=== PATIENT | male | born 1960 | race Caucasian/White ===

== ENCOUNTER 2018-10-13 09:06 | Emergency (ER) | payer BC ==
[2018-10-13 10:13] LABS: Absolute Monocytes 0.5 K/uL (0.1-1.3); Absolute Neutrophil 5.4 K/uL (1.8-8.0); Basophils % 1.2 % (0-1.3); Eosinophils % 2.2 % (0-4.4); Hematocrit 42.2 % (39.6-49.0); Monocytes % 6.5 % (3.3-12.3); RBC Red Blood Cell Count 4.58 M/uL (4.33-5.43)
[2018-10-13 10:14] LABS: Protime INR 1.04
[2018-10-13 10:32] LABS: ALT/SGPT 26 U/L (12-78); AST/SGOT 16 U/L (15-37); Albumin 3.3 g/dL (3.4-5.0); Alkaline Phosphatase 88 U/L (45-117); BUN Blood Urea Nitrogen 16 mg/dL (7-18); Bicarbonate 28 mmol/L (21-32); Bilirubin Direct 0.1 mg/dL (0-0.2); Bilirubin Total 0.4 mg/dL (0.2-1.0); Glucose Level 105 mg/dL (74-106); Potassium 4.2 mmol/L (3.5-5.1); Protein, Total 6.9 g/dL (6.4-8.2); Sodium Level 141 mmol/L (136-145); Troponin (Emerg Dept Use Only) < 0.02 ng/mL (0.0-0.045)
--- NOTE | 2018-10-13 11:16 | RAD REPORT ---
EXAM DESCRIPTION: RAD - Chest Single View - 10/13/2018 10:47 am CLINICAL HISTORY: Hypertension, dizziness COMPARISON: July 2011 TECHNIQUE: AP portable chest image was obtained 1045 hours . FINDINGS: Lungs are clear. Heart and vasculature are normal and similar to comparison. No measurable pleural effusion and no pneumothorax. No acute bony abnormality seen. No acute aortic findings suspe cted. IMPRESSION: No acute cardiopulmonary process. No significant interval change.
--- NOTE | 2018-10-13 11:22 | RAD REPORT ---
EXAM DESCRIPTION: CT - Head Brain Wo Cont - 10/13/2018 10:50 am CLINICAL HISTORY: Dizziness, weakness, hypertension COMPARISON: None. TECHNIQUE: Axial 5 mm thick images of the head were obtained without IV contrast. All CT scans are performed using dose optimization technique as appropriate and may include automated exposure control or mA/KV adjustment according to patient size. FINDINGS: No intracranial hemorrhage, mass, edema or shift of mid-line structures. No cortical based infarction identified. No cortical edema or sulcal effacement. Volume loss is minimal. Patient has a minimal chronic ischemic pattern evident. No abnormal extra-axial fluid collections. Ventricles are normal. There is subtle increased density along the tentorium. CT imaging is inherently limited in evaluation of the posterior fossa. No trauma history indicated. Mastoid air cells and visualized portions of the paranasal sinuses are clear. No acute bony findings. IMPRESSION: No hemorrhage, mass or edema. No cortical infarctions seen. Patient has minimal atrophy and chronic ischemic change potentially masking a small nonhemorrhagic CV A. If there are clinical concerns for CVA, MR imaging could be performed to exclude nonhemorrhagic CVA a nd to allow better posterior fossa assessment.
--- NOTE | 2018-10-13 13:17 | EKG ---
Test Date: 2018-10-13 Test Time: 09:42:15 Software Client Architect: NAVA MEASUREMENT RESULTS: Intervals: Rate: 82 SC: 194 QRSD: 100 QT: 386 QTc: 450 Bath: P: 42 SC: 194 QRS: 22 T: 36 INTERPRETIVE STATEMENTS: Normal sinus rhythm Normal ECG Compared to ECG 07/24/2011 10:48:59 No significant changes Electronically Signed On 10-13-18 13:16:25 ELECTRICAL TECH/PROJECT MANAGER by Alfred Mendez
--- NOTE | 2018-10-13 15:21 | EDPHYS ---
Physician Documentation [facility] Name: Colin Kaur Age: 58 yrs Sex: Male : 1960 Arrival Date: 10/13/2018 Time: 09:08 Bed 19 Private MD: Lucio Bond ED Physician Dave Barrera HPI: 10/13 10:32 This 58 yrs old Male presents to ER via Ambulatory with complaints of High kdr Blood Pressure, Dizziness. 10:32 The patient became lightheaded at work. He has been under a lot of stress and when kdr evaluated at work it was noted that his BP was elevated (180/110). When checked again, the SBP had decreased but the DBP had elevated so he was told to [facility] for evaluation. Onset: The symptoms/episode began/occurred suddenly, just prior to arrival. Severity of symptoms: At their worst the symptoms were very mild in the emergency department the symptoms have resolved. The patient has not experienced similar symptoms in the past. The patient has not recently seen a physician. Historical: - Allergies: 09:19 No Known Allergies; sg - Home Meds: 09:19 losartan oral oral [Active]; Lasix Oral [Active]; Potassium Chloride Oral [Active]; sg unable BP medication [Active]; - PMHx: 09:19 Hypertension; High Cholesterol; sg - PSHx: 09:19 Cholecystectomy; Hernia repair; sg - Immunization history:: Adult Immunizations up to date. - Social history:: Smoking status: Patient/guardian denies using tobacco. - Ebola Screening: : Patient negative for fever greater than or equal to 101.5 degrees Fahrenheit, and additional compatible Ebola Virus Disease symptoms Patient denies exposure to infectious person Patient denies travel to an Ebola-affected area in the 21 days before illness onset No symptoms or risks identified at this time. ROS: 10:32 Constitutional: Negative for fever, chills, and weight loss, Eyes: Negative for injury, kdr pain, redness, and discharge, ENT: Negative for injury, pain, and discharge, Neck: Negative for injury, pain, and swelling, Cardiovascular: Negative for chest pain, palpitations, and edema, Respiratory: Negative for shortness of breath, cough, wheezing, and pleuritic chest pain, Abdomen/GI: Negative for abdominal pain, nausea, vomiting, diarrhea, and constipation, Back: Negative for injury and pain, : Negative for injury, bleeding, discharge, and swelling, MS/Extremity: Negative for injury and deformity, Skin: Negative for injury, rash, and discoloration, Neuro: Negative for headache, weakness, numbness, tingling, and seizure activity. Psych: Negative for depression, anxiety, suicide ideation, homicidal ideation, and hallucinations, Allergy/Immunology: Negative for hives, rash, and allergies, Endocrine: Negative for neck swelling, polydipsia, polyuria, polyphagia, and marked weight changes, Hematologic/Lymphatic: Negative for swollen nodes, abnormal bleeding, and unusual bruising. Exam: 10:32 Constitutional: This is a well developed, well nourished obese patient who is awake, kdr alert, and in no acute distress. Head/Face: Normocephalic, atraumatic. Eyes: Pupils equal round and reactive to light, extra-ocular motions intact. Lids and lashes normal. Conjunctiva and sclera are non-icteric and not injected. Cornea within normal limits. Periorbital areas with no swelling, redness, or edema. Neck: Trachea midline, no thyromegaly or masses palpated, and no cervical lymphadenopathy. Supple, full range of motion without nuchal rigidity, or vertebral point tenderness. No Meningismus. Chest/axilla: Normal chest wall appearance and motion. Nontender with no deformity. No lesions are appreciated. Cardiovascular: Regular rate and rhythm with a normal S1 and S2. No gallops, murmurs, or rubs. Normal PMI, no JVD. No pulse deficits. Respiratory: Lungs have equal breath sounds bilaterally, clear to auscultation and percussion. No rales, rhonchi or wheezes noted. No increased work of breathing, no retractions or nasal flaring. Abdomen/GI: Soft, non-tender, with normal bowel sounds. No distension or tympany. No guarding or rebound. No evidence of tenderness throughout. Back: No spinal tenderness. No costovertebral tenderness. Full range of motion. Skin: Warm, dry with normal turgor. Normal color with no rashes, no lesions, and no evidence of cellulitis. MS/ Extremity: Pulses equal, no cyanosis. Neurovascular intact. Full, normal range of motion. Neuro: Awake and alert, GCS 15, oriented to person, place, time, and situation. Cranial nerves II-XII grossly intact. Motor strength 5/5 in all extremities. Sensory grossly intact. Cerebellar exam normal. Normal gait. Psych: Awake, alert, with orientation to person, place and time. Behavior, mood, and affect are within normal limits. Vital Signs: 09:17 Temp 98.6; Weight 167.83 kg (R); Height 5 ft. 8 in. (172.72 cm); sg 09:20 BP 160 / 88; Pulse 91; Resp 17; Temp 98.6(O); Pulse Ox 98% ; mh5 10:30 BP 127 / 80; Pulse 75; Resp 18; Pulse Ox 98% on R/A; aj1 11:20 BP 132 / 94; Pulse 79; Resp 22; Temp 97.8(TE); Pulse Ox 99% on R/A; mh5 12:24 BP 131 / 87; Pulse 76; Resp 18; Pulse Ox 100% on R/A; aj1 13:10 BP 136 / 90; Pulse 81; Resp 18; Temp 98.0(O); Pulse Ox 98% on R/A; mh5 14:15 BP 130 / 87; Pulse 72; Resp 18; Pulse Ox 99% ; aj1 16:26 BP 132 / 88; Pulse 75; Resp 18; Pulse Ox 99% on R/A; aj1 09:17 Body Mass Index 56.26 (167.83 kg, 172.72 cm) MDM: 10:00 ED course: CT head negative/Dr. Otoole. kdr 10:32 Data reviewed: vital signs, nurses notes, lab test result(s), radiologic studies. kdr Counseling: I had a detailed discussion with the patient and/or guardian regarding: the historical points, exam findings, and any diagnostic results supporting the discharge/admit diagnosis, lab results, radiology results. 15:20 Patient medically screened. kdr 10/13 09:40 Order name: Basic Metabolic Panel; Complete Time: 11:00 kdr 10/13 09:40 Order name: CBC with Diff; Complete Time: 11:00 kdr 10/13 09:40 Order name: LFT's; Complete Time: 11:00 kdr 10/13 09:40 Order name: Magnesium; Complete Time: 11:00 kdr 10/13 09:40 Order name: PT-INR; Complete Time: 11:00 kdr 10/13 09:40 Order name: Troponin (emerg Dept Use Only); Complete Time: 11:00 kdr 10/13 09:40 Order name: XRAY Chest (1 view); Complete Time: 11:50 kdr 10/13 09:40 Order name: EKG; Complete Time: 09:41 kdr 10/13 09:40 Order name: Cardiac monitoring; Complete Time: 10:08 [facility] 10/13 10:27 Order name: Head Brain Wo Cont; Complete Time: 11:50 EDMS 10/13 09:40 Order name: EKG - Nurse/Tech; Complete Time: 10:10 kdr 10/13 09:40 Order name: IV Saline Lock; Complete Time: 10: kdr 10/13 09:40 Order name: Labs collected and sent; Complete Time: 10: [facility] 10/13 09:40 Order name: O2 Per Protocol; Complete Time: 10: kdr 10/13 09:40 Order name: O2 Sat Monitoring; Complete Time: 10:08 kdr Administered Medications: No medications were administered Disposition: 10/13/18 15:20 Discharged to Home. Impression: Hypertensive heart disease, Altered mental status, unspecified. - Condition is Stable. - Discharge Instructions: Confusion, Hypertension, [id number]. - Work release form, Medication Reconciliation Form, Thank You Letter form. - Follow up: Lucio Bond MD; When: 2 - 3 days; Reason: If symptoms return, Further diagnostic work-up, Recheck today's complaints, Continuance of care, Re-evaluation by your physician. - Problem is new. - Symptoms are resolved. Signatures: [facility] Antonia Wray RN RN aj1 Michael Jo RN RN Dave Barrera MD MD [facility] Corrections: (The following items were deleted from the chart) 10:34 10:26 Head Brain Wo Cont+CT.RAD.BRZ ordered. [facility] EDMI 16:27 09:41 PROBNP+C.LAB.BRZ ordered. [facility] EDMI 16:28 15:20 10/13/2018 15:20 Discharged to Home. Impression: Hypertensive heart disease; aj1 Altered mental status, unspecified. Condition is Stable. Forms are Medication Reconciliation Form, Thank You Letter, Antibiotic Education, Prescription Opioid Use. Follow up: Lucio Bond; When: 2 - 3 days; Reason: If symptoms return, Further diagnostic work-up, Recheck today's complaints, Continuance of care, Re-evaluation by your physician. Problem is new. Symptoms are resolved. kdr
--- NOTE | 2018-10-13 15:21 | ER ---
Nurse's Notes [facility] Name: Colin Kaur Age: 58 yrs Sex: Male : 1960 Arrival Date: 10/13/2018 Time: 09:08 Bed 19 Private MD: Lucio Bond Diagnosis: Hypertensive heart disease;Altered mental status, unspecified Presentation: 10/13 09:15 Presenting complaint: Patient states: Last night had intermittent episodes of light sg handedness, reports his BP to be 180/110 this morning, took his regular BP medications and is now feeling better, denies pain/N/V/D/Fever at this time. Transition of care: patient was not received from another setting of care. Onset of symptoms was October 13, 2018. Risk Assessment: Do you want to hurt yourself or someone else? Patient reports no desire to harm self or others. Initial Sepsis Screen: Does the patient meet any 2 criteria? No. Patient's initial sepsis screen is negative. Does the patient have a suspected source of infection? No. Patient's initial sepsis screen is negative. Care prior to arrival: None. 09:15 Method Of Arrival: Ambulatory sg 09:15 Acuity: LEAH 3 sg Historical: - Allergies: 09:19 No Known Allergies; sg - Home Meds: 09:19 losartan oral oral [Active]; Lasix Oral [Active]; Potassium Chloride Oral [Active]; sg unable BP medication [Active]; - PMHx: 09:19 Hypertension; High Cholesterol; sg - PSHx: 09:19 Cholecystectomy; Hernia repair; sg - Immunization history:: Adult Immunizations up to date. - Social history:: Smoking status: Patient/guardian denies using tobacco. - Ebola Screening: : Patient negative for fever greater than or equal to 101.5 degrees Fahrenheit, and additional compatible Ebola Virus Disease symptoms Patient denies exposure to infectious person Patient denies travel to an Ebola-affected area in the 21 days before illness onset No symptoms or risks identified at this time. Screenin:30 Abuse screen: Denies threats or abuse. Denies injuries from another. Nutritional sg screening: No deficits noted. Tuberculosis screening: No symptoms or risk factors identified. Never had TB. Fall Risk None identified. Assessment: 09:30 General: Appears in no apparent distress. comfortable, obese, well groomed, well sg developed, well nourished, Behavior is calm, cooperative, appropriate for age. Pain: Denies pain. Neuro: Level of Consciousness is awake, alert, obeys commands, Oriented to person, place, time, situation, Still Operator Whiskey are equal bilaterally Moves all extremities. Gait is steady, Speech is normal, Facial symmetry appears normal, Pupils are PERRLA, Reports dizziness. Cardiovascular: Capillary refill is brisk in bilateral fingers Patient's skin is warm and dry. Chest pain is denied. Respiratory: Airway is patent Respiratory effort is even, unlabored, Respiratory pattern is regular, symmetrical. GI: Abdomen is round non-distended, Bowel sounds present X 4 quads. Reports normal bowel habits, tolerance of fluids, tolerance of food. : No signs and/or symptoms were reported regarding the genitourinary system. EENT: No signs and/or symptoms were reported regarding the EENT system. Derm: Skin is pink, warm \\T\\ dry. Musculoskeletal: No signs and/or symptoms reported regarding the musculoskeletal system. 10:30 General: Appears in no apparent distress. comfortable, Behavior is calm, cooperative, aj1 appropriate for age. Pain: Denies pain. Neuro: Level of Consciousness is awake, alert, obeys commands, Oriented to person, place, time, situation, Speech is normal, Facial symmetry appears normal, Reports dizziness. Cardiovascular: Patient's skin is warm and dry. Rhythm is sinus rhythm Chest pain is denied. Respiratory: Airway is patent Respiratory effort is even, unlabored, Respiratory pattern is regular, symmetrical. GI: No signs and/or symptoms were reported involving the gastrointestinal system. Abdomen is non-distended. : No signs and/or symptoms were reported regarding the genitourinary system. EENT: No signs and/or symptoms were reported regarding the EENT system. Derm: No signs and/or symptoms reported regarding the dermatologic system. Skin is pink, warm \\T\\ dry. normal. Musculoskeletal: No signs and/or symptoms reported regarding the musculoskeletal system. Circulation, motion, and sensation intact. 11:30 Reassessment: Patient appears in no apparent distress at this time. No changes from aj1 previously documented assessment. Patient and/or family updated on plan of care and expected duration. Pain level reassessed. Patient is alert, oriented x 3, equal unlabored respirations, skin warm/dry/pink. 12:23 Reassessment: Patient appears in no apparent distress at this time. No changes from aj1 previously documented assessment. Patient and/or family updated on plan of care and expected duration. Pain level reassessed. Patient is alert, oriented x 3, equal unlabored respirations, skin warm/dry/pink. 13:47 Reassessment: Patient appears in no apparent distress at this time. No changes from aj1 previously documented assessment. Patient and/or family updated on plan of care and expected duration. Pain level reassessed. Patient is alert, oriented x 3, equal unlabored respirations, skin warm/dry/pink. 14:26 Reassessment: Patient taken to MRI via stretcher. aj1 14:56 Reassessment: Patient returned to room from MRI, patient was unable to have MRI done aj1 because he felt too claustrophobic to complete the exam. Patient was asked if he would be filling to try again if we gave him medication for anxiety. Patient states "There's no way I'm going to do that test. You would have to give me anesthesia" Notified Dr. Barrera. 15:45 Reassessment: Patient appears in no apparent distress at this time. No changes from aj1 previously documented assessment. Patient and/or family updated on plan of care and expected duration. Pain level reassessed. Patient is alert, oriented x 3, equal unlabored respirations, skin warm/dry/pink. 16:26 Reassessment: Patient appears in no apparent distress at this time. No changes from aj1 previously documented assessment. Patient and/or family updated on plan of care and expected duration. Pain level reassessed. Patient is alert, oriented x 3, equal unlabored respirations, skin warm/dry/pink. Vital Signs: 09:17 Temp 98.6; Weight 167.83 kg (R); Height 5 ft. 8 in. (172.72 cm); sg 09:20 BP 160 / 88; Pulse 91; Resp 17; Temp 98.6(O); Pulse Ox 98% ; mh5 10:30 BP 127 / 80; Pulse 75; Resp 18; Pulse Ox 98% on R/A; aj1 11:20 BP 132 / 94; Pulse 79; Resp 22; Temp 97.8(TE); Pulse Ox 99% on R/A; mh5 12:24 BP 131 / 87; Pulse 76; Resp 18; Pulse Ox 100% on R/A; aj1 13:10 BP 136 / 90; Pulse 81; Resp 18; Temp 98.0(O); Pulse Ox 98% on R/A; mh5 14:15 BP 130 / 87; Pulse 72; Resp 18; Pulse Ox 99% ; aj1 16:26 BP 132 / 88; Pulse 75; Resp 18; Pulse Ox 99% on R/A; aj1 09:17 Body Mass Index 56.26 (167.83 kg, 172.72 cm) ED Course: 09:08 Patient arrived in ED. as 09:09 Lucio Bond MD is Private Physician. as 09:12 Dave Barrera MD is Attending Physician. kdr 09:14 Juana Malhotra, RN is Primary Nurse. 5 09:17 Triage completed. 09:19 Arm band placed on. sg 10:00 Initial lab(s) drawn, by wi, sent to lab. Inserted saline lock: 20 gauge in right sg antecubital area, using aseptic technique. Blood collected. 10:06 EKG done, by ED staff. at1 10:48 XRAY Chest (1 view) In Process Unspecified. EDMS 10:50 Head Brain Wo Cont In Process Unspecified. EDMS 11:19 Patient has correct armband on for positive identification. Placed in gown. Bed in low mh5 position. Call light in reach. Side rails up X 1. Adult w/ patient. Warm blanket given. monitoring and evaluation advisor on. Pulse ox on. NIBP on. 11:19 EKG done, by ED staff, reviewed by Dave Barrera MD. 5 12:23 No provider procedures requiring assistance completed. aj1 15:19 Lucio Bond MD is Referral Physician. kdr 16:27 IV discontinued, intact, bleeding controlled, No redness/swelling at site. Pressure aj1 dressing applied. Administered Medications: No medications were administered Outcome: 15:20 Discharge ordered by . kdr 16:27 Discharged to home ambulatory. aj1 16:27 Condition: good 16:27 Discharge instructions given to patient, Instructed on discharge instructions, follow up and referral plans. Demonstrated understanding of instructions, follow-up care. 16:28 Patient left the ED. aj1 Signatures: Dispatcher [employer] EDAntonia Mosley RN RN Eloisa Moreauna, RN RN dm5 Michael Jo, RN RN sg Dave Barrera MD MD kdr Martinez, Amelia as Gonzales, Amanda, weapons and tactics instructor EKG [facility] Deborah Dunn [facility] Corrections: (The following items were deleted from the chart) : 09:20 BP 160 / 88; Pulse 91bpm; Resp 17bpm; sg mh5
== END 2018-10-13 16:28 | disposition home or self-care (01) ==
LOC: ER 09:06
DX: I11.9 Hypertensive heart disease without heart failure (principal); I10 Essential (primary) hypertension; E78.00 Pure hypercholesterolemia, unspecified
CPT/HCPCS: 36415; 70450; 71045; 80048; 80076; 83735; 84484; 85025; 85610; 93005; 99285

== ENCOUNTER 2024-12-07 14:49 | Emergency (ER) | payer OTHER ==
[2024-12-07] MEDS ORDERED: MAGNESIUM SULFATE 1 gm IVPB 1 GM/100 ML BAG IV ONE (15:21)
[2024-12-07] MEDS ORDERED: NA CHLORIDE 0.9% 500 ML ONE (15:21)
--- NOTE | 2024-12-07 15:26 | RAD REPORT ---
EXAM: Chest Single View HISTORY: 64 years Male PALPITATIONS COMPARISON: 10/13/2018 FINDINGS: LUNGS/PLEURA: The lungs are clear. No pleural effusions or pneumothorax. No pulmonary edema. CARDIAC/MEDIASTINUM: The cardiac silhouette is within normal limits. UPPER ABDOMEN: No significant abnormality. BONES: No acute abnormality. LINES/TUBES/OTHER: N/A IMPRESSION: No evidence of acute cardiopulmonary disease. No significant change from prior.
[2024-12-07 15:41] LABS: Absolute Basophils 0.1 K/uL (0-0.5); Absolute Eosinophils 0.3 K/uL (0-0.5); Absolute Lymphocytes (CBC) 2.3 K/uL (0.7-4.9); Absolute Monocytes 0.7 K/uL (0.1-1.3); Absolute Neutrophil 6.8 K/uL (1.8-8.0); Basophils % 0.7 % (0-1.3); Hematocrit 48.1 % (39.6-49.0); Hemoglobin 16.7 g/dL (13.6-17.9); Lymphocytes % 22.2 % (15.3-44.8); MCH 31.9 pg (27.0-35.0); MCHC 34.7 g/dL (32.0-36.0); MPV 7.5 fL (7.6-11.3); Monocytes % 7.3 % (3.3-12.3); Neutrophils % 66.8 % (41.7-73.7); Nucleated Red Blood Cells % 0.1 % (0-0); Platelets 330 thou/uL (152-406); RBC Red Blood Cell Count 5.23 M/uL (4.33-5.43); Red Cell Distribution Width 13.6 % (12.1-15.2)
[2024-12-07 15:50] LABS: PT Prothrombin Time 11.8 SECONDS (10-13.0); Protime INR 1.04
[2024-12-07 16:00] LABS: Specific Gravity 1.009 (1.005-1.030); Sqamous Epithelial <5 /HPF (None Seen); Urine Bacteria <20 /HPF (<20); Urine Bilirubin NEGATIVE (Negative); Urine Blood Negative (Negative); Urine Clarity Turbid (Clear); Urine Color Light-Yellow (Yellow); Urine Culture Reflex Order NOT NEEDED; Urine Glucose NEGATIVE (Negative); Urine Ketones 1+ (Negative); Urine Microscopic Reflex YN ORDER UMIC; Urine Mucus Slight /HPF (None Seen); Urine Nitrite NEGATIVE (Negative); Urine Protein TRACE (Negative); Urine RBC <5 /HPF (None Seen); Urine Urobilinogen Normal (Normal); Urine WBC <5 /HPF (<5); Urine Yeast (Budding) Trace /HPF (None Seen); Urine pH 5.5 (5.0-7.0)
[2024-12-07 16:10] LABS: ALT/SGPT 28 U/L (16-61); AST/SGOT 14 U/L (15-37); Albumin 3.3 g/dL (3.4-5.0); Albumin/Globulin Ratio 0.9 (1.1-1.8); Alkaline Phosphatase 76 U/L (45-117); Anion Gap 6.8 mEq/L (5.0-15.0); BUN Blood Urea Nitrogen 14 mg/dL (7-18); Bicarbonate 29 mEq/L (21-32); Bilirubin Total 0.5 mg/dL (0.2-1.0); Globulin 3.8 g/dL (2.3-3.5); Glomerular Filtration Rate 77 ml/min (=/>90); Glucose Level 101 mg/dL (74-106); Lipase 25 U/L (13-75); Magnesium 1.8 mg/dL (1.6-2.4); NT PRO-BNP 44 pg/mL (<125); Potassium 3.8 mEq/L (3.5-5.1); Protein, Total 7.1 g/dL (6.4-8.2); Sodium Level 135 mEq/L (136-145); Troponin High Sensitivity 6.3 pg/mL (<58.9)
[2024-12-07] MEDS ORDERED: METOPROLOL TAR 50 MG TAB ONE (16:12)
[2024-12-07] MEDS ORDERED: ASPIRIN 81 MG CHEWABLE TABLET ONE (16:13)
[2024-12-07 16:15] LABS: Bilirubin Direct < 0.2 mg/dL (0-0.2); Bilirubin Indirect, Calculated 0.3 mg/dL (0.2-0.8)
[2024-12-07] MEDS ORDERED: lisinopriL 10 MG TAB ONE (17:00)
--- NOTE | 2024-12-07 17:11 | RAD REPORT ---
EXAMINATION: US LOWER EXTREMITY VENOUS DOPPLER BILATERAL CLINICAL INDICATION: Male, 64 years old.SWELLING TECHNIQUE: Complete bilateral duplex sonography of the lower extremity veins was performed. The exami nation included compression for vein patency, color Doppler imaging and flow augmentation in response to distal compression of the distal external iliac, common femoral, femoral, popliteal, dylan jagjit, tibial and great saphenous veins. [id number]. COMPARISON: No prior exams FINDINGS: Duplex sonography imaging demonstrates all deep examined to be fully compressible with spontaneous, p hasic and augmented flow bilaterally. IMPRESSION: No evidence of deep venous thrombosis seen in either lower extremity.
--- NOTE | 2024-12-07 17:31 | EDPHYS ---
Physician Documentation [facility] Name: Colin Kaur Age: 64 yrs Sex: Male : 1960 Arrival Date: 12/07/2024 Time: 14:49 Bed 8 Private MD: ED Physician Lacho Yancey HPI: 12/07 15:31 This 64 yrs old Male presents to ER via EMS with complaints of Palpitations. matthew 15:31 The patient presents with a history of irregular heart beat, heart racing. Context: The matthew symptoms occur at rest. Onset: The symptoms/episode began/occurred today. Modifying factors: The symptoms are aggravated by nothing. The symptoms are alleviated by nothing. Severity of symptoms: At their worst the symptoms were moderate in the emergency department the symptoms have improved mildly. The patient has experienced similar episodes in the past, several times. Historical: - Allergies: 14:47 No Known Allergies; db - PMHx: 14:47 High Cholesterol; Hypertension; db - Immunization history:: Adult Immunizations unknown. - Infectious Disease History:: Denies. - Social history:: Smoking status: Patient/guardian denies using tobacco, the patient reports quitting approximately 5 years ago. - Family history:: not pertinent. ROS: 15:32 Constitutional: Negative for fever, chills, and weight loss, Eyes: Negative for injury, matthew pain, redness, and discharge, ENT: Negative for injury, pain, and discharge, Neck: Negative for injury, pain, and swelling, Respiratory: Negative for shortness of breath, cough, wheezing, and pleuritic chest pain, Abdomen/GI: Negative for abdominal pain, nausea, vomiting, diarrhea, and constipation, Back: Negative for injury and pain, : Negative for injury, bleeding, discharge, and swelling, MS/Extremity: Negative for injury and deformity, Skin: Negative for injury, rash, and discoloration, Neuro: Negative for headache, weakness, numbness, tingling, and seizure, Psych: Negative for depression, anxiety, suicide ideation, homicidal ideation, and hallucinations, Allergy/Immunology: Negative for hives, rash, and allergies, Endocrine: Negative for neck swelling, polydipsia, polyuria, polyphagia, and marked weight changes, Hematologic/Lymphatic: Negative for swollen nodes, abnormal bleeding, and unusual bruising, 15:32 Cardiovascular: Positive for palpitations, Exam: 15:33 Constitutional: This is a well developed, well nourished patient who is awake, alert, matthew and in no acute distress. Head/Face: Normocephalic, atraumatic. Eyes: Pupils equal round and reactive to light, extra-ocular motions intact. Lids and lashes normal. Conjunctiva and sclera are non-icteric and not injected. Cornea within normal limits. Periorbital areas with no swelling, redness, or edema. ENT: Nares patent. No nasal discharge, no septal abnormalities noted. Tympanic membranes are normal and external auditory canals are clear. Oropharynx with no redness, swelling, or masses, exudates, or evidence of obstruction, uvula midline. Mucous membranes moist. Neck: Trachea midline, no thyromegaly or masses palpated, and no cervical lymphadenopathy. Supple, full range of motion without nuchal rigidity, or vertebral point tenderness. No Meningismus. Chest/axilla: Normal chest wall appearance and motion. Nontender with no deformity. No lesions are appreciated. Respiratory: Lungs have equal breath sounds bilaterally, clear to auscultation and percussion. No rales, rhonchi or wheezes noted. No increased work of breathing, no retractions or nasal flaring. Abdomen/GI: Soft, non-tender, with normal bowel sounds. No distension or tympany. No guarding or rebound. No evidence of tenderness throughout. Back: No spinal tenderness. No costovertebral tenderness. Full range of motion. Male : Normal genitalia with no discharge or lesions. Skin: Warm, dry with normal turgor. Normal color with no rashes, no lesions, and no evidence of cellulitis. MS/ Extremity: Pulses equal, no cyanosis. Neurovascular intact. Full, normal range of motion., bilateral aka Neuro: Awake and alert, GCS 15, oriented to person, place, time, and situation. Cranial nerves II-XII grossly intact. Motor strength 5/5 in all extremities. Sensory grossly intact. Cerebellar exam normal. Normal gait. Psych: Awake, alert, with orientation to person, place and time. Behavior, mood, and affect are within normal limits. 15:33 Cardiovascular: Rate: tachycardic, actual rate is 102 bpm, Rhythm: regular, Pulses: Pulses are 4+ in bilateral radial, brachial, femoral, popliteal, posterior tibial and and dorsalis pedis arteries.. Heart sounds: normal, JVD: is not appreciated, 15:33 ECG was reviewed by the Attending Physician. 15:33 Musculoskeletal/extremity: ROM: Circulation is intact in all extremities. Sensation intact. Compartment Syndrome exam of affected extremity: is normal. Weight bearing: able to fully bear weight, DVT Exam: pain, swelling, tenderness, 15:51 ECG was reviewed by the Attending Physician. matthew Vital Signs: 14:47 BP 168 / 123; Pulse 102; Resp 18; Temp 98.5; Pulse Ox 97% on R/A; Weight 153.31 kg; db Height 5 ft. 8 in. ; Pain 0/10; 15:00 BP 165 / 109; Pulse 100; Resp 18; Pulse Ox 97% ; db 15:30 BP 153 / 99; Pulse 101; Resp 18; Pulse Ox 97% on R/A; db 16:00 BP 144 / 83; Pulse 100; Resp 22; Pulse Ox 100% on R/A; db 16:30 BP 136 / 83; Pulse 98; Resp 26; Pulse Ox 98% ; db 17:30 BP 152 / 98 Supine; Pulse 97; Pulse Ox 97% ; db 17:32 BP 156 / 110 Sitting; Pulse 113; Pulse Ox 95% ; db 17:36 BP 164 / 108 Standing; Pulse 116; Pulse Ox 98% ; db 18:50 BP 152 / 85; Pulse 92; Resp 18; Pulse Ox 98% on R/A; db 14:47 Body Mass Index 51.39 (153.31 kg, 172.72 cm) db 14:47 Pain Scale: Adult db Cherri Coma Score: 15:33 Eye Response: spontaneous(4). Motor Response: obeys commands(6). Verbal Response: matthew oriented(5). Total: 15. MDM: 15:01 Medical Screening Exam initiated matthew 15:35 AUBREE Risk Score: 1 - Patient's age is greater or equal to 65, 1 - 3 or more CAD risk matthew factors. Differential diagnosis: arrythmia, dehydration. Data reviewed: vital signs, nurses notes, lab test result(s), EKG, radiologic studies, plain films. Consideration of Admission/Observation Patient was admitted/placed on observation. Escalation of care including admission/observation considered. I considered the following discharge prescriptions or medication management in the emergency department Medications were administered in the Emergency Department. See MAR. Independent interpretation of the following test(s) in the Emergency Department EKG: See my EKG interpretation above. Historians other than the Patient: PT WELL INFIORMED. Care significantly affected by the following chronic conditions: Hypertension, Obesity, HIGH CHLESTEROL. 12/07 15:02 Order name: Basic Metabolic Panel; Complete Time: 16:19 12/07 15:02 Order name: CBC with Diff; Complete Time: 16:19 12/07 15:02 Order name: LFT's; Complete Time: 16:19 12/07 15:02 Order name: Magnesium; Complete Time: 16:19 12/07 15:02 Order name: NT PRO-BNP; Complete Time: 16:19 12/07 15:02 Order name: PT-INR; Complete Time: 16:19 12/07 15:02 Order name: Troponin HS; Complete Time: 16:19 12/07 15:02 Order name: Lipase; Complete Time: 16:19 12/07 15:02 Order name: Urinalysis w/ reflexes; Complete Time: 16:19 12/07 15:02 Order name: TSH; Complete Time: 16:19 12/07 15:02 Order name: XRAY Chest (1 view); Complete Time: 16:19 12/07 15:30 Order name: US Extremity Venous W Compression Jan; Complete Time: 17:30 12/07 17:51 Order name: CT Chest For PE Angio 12/07 15:02 Order name: EKG; Complete Time: 15:03 12/07 15:02 Order name: Cardiac monitoring; Complete Time: 15:09 12/07 15:02 Order name: IV Saline Lock; Complete Time: 15:09 12/07 15:02 Order name: Labs collected and sent; Complete Time: 15:37 12/07 15:02 Order name: O2 Per Protocol; Complete Time: 15:09 12/07 17:01 Order name: Orthostatics; Complete Time: 17:40 12/07 17:04 Order name: PO challenge; Complete Time: 18:27 [facility] EC:51 Rate is 98 beats/min. Rhythm is regular. QRS [place] is Normal. [place] interval is normal. QRS matthew interval is normal. QT interval is normal. No Q waves. T waves are Normal. No ST changes noted. Clinical impression: NSR w/ Non-specific ST/T Changes, 1st degree heart block, and No evidence of ischemia. Interpreted by me. Reviewed by me. Administered Medications: 15:30 Drug: NS 0.9% IV 500 ml 500 ml IV at 1 bolus once; to be given as a bolus over 30 db minutes Volume: 500 ml; Route: IV; Rate: 1 bolus; Site: right antecubital; 15:30 Drug: Magnesium Sulfate IVPB 1 grams IVPB once over 1 hrs Route: IVPB; Infused Over: 1 db hrs; Site: right antecubital; 16:23 Drug: Metoprolol PO 50 mg PO once Route: PO; db 16:23 Drug: Aspirin PO Chewable Tablet 162 mg PO once Route: PO; db 17:01 Not Given (Duplicate Order): mg PO once matthew 17:05 Drug: Lisinopril PO 10 mg PO once Route: PO; db 19:15 Follow up: Response: No adverse reaction; Marked relief of symptoms; Blood pressure is vc1 lowered 18:48 Drug: Enoxaparin Sub-Q 100 mg Sub-Q once Route: Sub-Q; Site: left lower abdomen; db Disposition Summary: 12/07/24 19:08 Discharge Ordered Notes: Location: Home(12/07/24 19:08) sb4 Problem: new(12/07/24 19:08) sb4 Symptoms: have improved(12/07/24 19:08) sb4 Condition: Fair(12/07/24 19:08) sb4 Diagnosis - Tachycardia, unspecified(12/07/24 19:08) sb4 - Essential (primary) hypertension(12/07/24 19:08) sb4 - Palpitations(12/07/24 19:08) sb4 - Obesity, unspecified(12/07/24 19:08) sb4 Followup: matthew - With: Private Physician - When: 2 - 3 days - Reason: Recheck today's complaints, Continuance of care, Re-evaluation by your physician Followup: matthew - With: Juan Sweeney MD - When: 2 - 3 days - Reason: Recheck today's complaints, Continuance of care, Re-evaluation by your physician Discharge Instructions: - Discharge Summary Sheet sb4 - Hypertension, Adult, [id number] sb4 - How to Take Your Blood Pressure, [id number] sb4 Forms: - Medication Reconciliation Form sb4 - Antibiotic Education sb4 - Prescription Opioid Use sb4 - Patient Portal Instructions sb4 - Leadership Thank You Letter sb4 Prescriptions: - aspirin 81 mg Oral capsule - take 1 capsule ORAL route daily; 20 capsule; Refills: 0, Product Selection sb4 Permitted - Toprol XL 50 mg Oral Tablet - take 1 tablet ORAL route once daily; 20 tablet; Refills: 0, Product Selection sb4 Permitted - Lisinopril 10 mg Oral Tablet - take 1 tablet ORAL route once daily; 20 tablet; Refills: 0, Product Selection sb4 Permitted Signatures: Dispatcher [employer] EDLacho Dawson MD MD cha Benton, Danielle RN RN Ashley Lenz PA-C PA-C sb4 CalcoteTeresita RN vc1 Corrections: (The following items were deleted from the chart) 17:46 17:30 Home matthew matthew 17:46 17:30 new matthew matthew 17:46 17:30 have improved matthew matthew 17:46 17:30 Fair matthew matthew 17:46 17:30 Tachycardia, unspecified matthew matthew 17:46 17:30 Essential (primary) hypertension matthew matthew 17:46 17:30 Palpitations matthew matthew 17:46 17:30 Obesity, unspecified matthew matthew 19:08 17:53 Observation matthew sb4 19:08 17:53 [place] matthew sb4 19:08 17:53 Telemetry/MedSurg (observation) matthew sb4 19:08 17:53 Fair matthew sb4 19:08 17:53 new matthew sb4 19:08 17:53 have improved matthew sb4 19:08 17:53 Standard matthew sb4 19:08 17:53 matthew sb4 19:08 17:53 Essential (primary) hypertension matthew sb4 19:08 17:53 Dyspnea matthew sb4 19:08 17:53 Tachycardia, unspecified matthew sb4 19:08 17:53 Obesity, unspecified matthew sb4
--- NOTE | 2024-12-07 17:31 | ER ---
Nurse's Notes [facility] Name: Colin Kaur Age: 64 yrs Sex: Male : 1960 Arrival Date: 12/07/2024 Time: 14:49 Bed 8 Private MD: Diagnosis: Tachycardia, unspecified;Essential (primary) hypertension;Palpitations;Obesity, unspecified Presentation: 12/07 14:47 Chief complaint: EMS states: PALPITATIONS, HIGH HR, INDIGESTION HEART "FLUTTERING".. db NON COMPLIANT WITH MEDICATIONS. HR 140 BP 180/120. Coronavirus screen: Client denies travel out of the [place] in the last 14 days. At this time, the client does not indicate any symptoms associated with coronavirus-19. Ebola Screen: Patient negative for fever greater than or equal to 101.5 degrees Fahrenheit, and additional compatible Ebola Virus Disease symptoms Patient denies exposure to infectious person. Patient denies travel to an Ebola-affected area in the 21 days before illness onset. No symptoms or risks identified at this time. Initial Sepsis Screen: Does the patient meet any 2 criteria? No. Patient's initial sepsis screen is negative. Does the patient have a suspected source of infection? No. Patient's initial sepsis screen is negative. Risk Assessment: Do you want to hurt yourself or someone else? Patient reports no desire to harm self or others. Onset of symptoms was December 07, 2024. Care prior to arrival: IV initiated. 18 GA, in the right antecubital area, Glucose check: 94. 14:47 Method Of Arrival: EMS: [facility] db 14:47 Acuity: LEAH 2 db Triage Assessment: 14:47 General: Appears in no apparent distress. comfortable, Behavior is calm, cooperative. db Pain: Denies pain. Neuro: Level of Consciousness is awake, alert, obeys commands, Oriented to person, place, time, situation. Respiratory: Airway is patent Respiratory effort is even, unlabored, Respiratory pattern is regular, symmetrical. Historical: - Allergies: 14:47 No Known Allergies; db - PMHx: 14:47 High Cholesterol; Hypertension; db - Immunization history:: Adult Immunizations unknown. - Infectious Disease History:: Denies. - Social history:: Smoking status: Patient/guardian denies using tobacco, the patient reports quitting approximately 5 years ago. - Family history:: not pertinent. Screenin:06 [facility] ED Fall Risk Assessment (Adult) History of falling in the last 3 months, db including since admission No falls in past 3 months (0 pts) Confusion or Disorientation No (0 pts) Intoxicated or Sedated No (0 pts) Impaired Gait Yes (1 pt) Mobility Assist Device Used No (0 pt) Altered Elimination No (0 pt) Score/Fall Risk Level 0 - 2 = Low Risk Oriented to surroundings, Maintained a safe environment. Abuse screen: Denies threats or abuse. Denies injuries from another. Nutritional screening: No deficits noted. Tuberculosis screening: No symptoms or risk factors identified. Assessment: 15:06 Reassessment: SEE TRIAGE FOR INITIAL ASSESSMENT. db 15:57 Reassessment: Patient appears in no apparent distress at this time. Patient and/or db family updated on plan of care and expected duration. Pain level reassessed. Patient is alert, oriented x 3, equal unlabored respirations, skin warm/dry/pink. General: Appears in no apparent distress. comfortable, Behavior is calm, cooperative. Neuro: Level of Consciousness is awake, alert, obeys commands, Oriented to person, place, time, situation. Respiratory: Airway is patent Respiratory effort is even, unlabored, Respiratory pattern is regular, symmetrical. 16:23 Reassessment: Patient appears in no apparent distress at this time. Patient and/or db family updated on plan of care and expected duration. Pain level reassessed. Patient is alert, oriented x 3, equal unlabored respirations, skin warm/dry/pink. 19:02 Reassessment: Patient appears in no apparent distress at this time. Patient and/or db family updated on plan of care and expected duration. Pain level reassessed. Patient is alert, oriented x 3, equal unlabored respirations, skin warm/dry/pink. PATIENT SPOKE TO HOSPITALIST WANTS TO LEAVE AMA. NOTIFIED CHARGE NURSE LEVI NERI. Vital Signs: 14:47 BP 168 / 123; Pulse 102; Resp 18; Temp 98.5; Pulse Ox 97% on R/A; Weight 153.31 kg; db Height 5 ft. 8 in. ; Pain 0/10; 15:00 BP 165 / 109; Pulse 100; Resp 18; Pulse Ox 97% ; db 15:30 BP 153 / 99; Pulse 101; Resp 18; Pulse Ox 97% on R/A; db 16:00 BP 144 / 83; Pulse 100; Resp 22; Pulse Ox 100% on R/A; db 16:30 BP 136 / 83; Pulse 98; Resp 26; Pulse Ox 98% ; db 17:30 BP 152 / 98 Supine; Pulse 97; Pulse Ox 97% ; db 17:32 BP 156 / 110 Sitting; Pulse 113; Pulse Ox 95% ; db 17:36 BP 164 / 108 Standing; Pulse 116; Pulse Ox 98% ; db 18:50 BP 152 / 85; Pulse 92; Resp 18; Pulse Ox 98% on R/A; db 14:47 Body Mass Index 51.39 (153.31 kg, 172.72 cm) db 14:47 Pain Scale: Adult db Cherri Coma Score: 15:33 Eye Response: spontaneous(4). Motor Response: obeys commands(6). Verbal Response: matthew oriented(5). Total: 15. ED Course: 14:47 Arm band placed on Patient notified of wait time. db 14:47 Patient placed in an exam room. db 14:50 Maintain EMS IV. Dressing intact. Good blood return noted. Site clean \\T\\ dry. Gauge \\T\\ db site: 18 G RAC. 15:00 Patient arrived in ED. db 15:01 Lacho Yancey MD is Attending Physician. matthew 15:04 Triage completed. db 15:06 Patient has correct armband on for positive identification. Bed in low position. Call db light in reach. Side rails up X 1. Client placed on continuous cardiac and pulse oximetry monitoring. NIBP monitoring applied. gambling monitor on. Pulse ox on. NIBP on. Warm blanket given. Pillow given. 15:08 Sirena Jefferson, RN is Primary Nurse. db 15:23 XRAY Chest (1 view) In Process Unspecified. EDMS 17:07 US Extremity Venous W Compression Jan In Process Unspecified. EDMS 17:30 Juan Sweeney MD is Referral Physician. matthew 17:52 Prince Alston MD is Hospitalizing Provider. matthew 18:14 Inserted saline lock: 20 gauge in left antecubital area, using aseptic technique. Blood am7 collected. Flushed with 10 mL NS. 18:29 CT Chest For PE Angio In Process Unspecified. EDMS 19:08 Juan Sweeney MD is Referral Physician. sb4 19:14 Provided Education on: RETURN TO ER IF SYMPTOMS RETUR. vc1 19:14 No provider procedures requiring assistance completed. IV discontinued, intact, vc1 bleeding controlled, No redness/swelling at site. Pressure dressing applied. Administered Medications: 15:30 Drug: NS 0.9% IV 500 ml 500 ml IV at 1 bolus once; to be given as a bolus over 30 db minutes Volume: 500 ml; Route: IV; Rate: 1 bolus; Site: right antecubital; 15:30 Drug: Magnesium Sulfate IVPB 1 grams IVPB once over 1 hrs Route: IVPB; Infused Over: 1 db hrs; Site: right antecubital; 16:23 Drug: Metoprolol PO 50 mg PO once Route: PO; db 16:23 Drug: Aspirin PO Chewable Tablet 162 mg PO once Route: PO; db 17:01 Not Given (Duplicate Order): [id number] mg PO once matthew 17:05 Drug: Lisinopril PO 10 mg PO once Route: PO; db 19:15 Follow up: Response: No adverse reaction; Marked relief of symptoms; Blood pressure is vc1 lowered 18:48 Drug: Enoxaparin Sub-Q 100 mg Sub-Q once Route: Sub-Q; Site: left lower abdomen; db Medication: 19:14 VIS not applicable for this client. vc1 Outcome: 17:30 Discharge ordered by . matthew 17:53 Decision to Hospitalize by Provider. matthew 19:08 Discharge ordered by . sb4 19:14 Discharged to home ambulatory, vc1 19:14 Condition: stable 19:14 Discharge instructions given to patient, Instructed on discharge instructions, follow up and referral plans. medication usage, Demonstrated understanding of instructions, follow-up care, medications, Prescriptions given X 3, 19:14 Patient left the ED. vc1 Signatures: Dispatcher [employer] EDDE Lacho Yancey MD MD cha Calcote, Vanessa RN RN vc1 Sirena Jefferson RN RN Ashley Lenz PA-C PA-C sb4 Carli Briones am7
[2024-12-07] MEDS ORDERED: ENOXAPARIN 100 MG/ML SYR SQ ONE (18:04)
--- NOTE | 2024-12-07 18:45 | RAD REPORT ---
EXAMINATION: CTA CHEST PE CLINICAL INDICATION: Male, 64 years old. TACHY;Dyspnea TECHNIQUE: This examination was performed according to an angiographic protocol with 3D post-processi ng. This involves 3D reconstructions, MIPs, volume rendered images and/or shaded surface rendering. One or more of the following dose reduction techniques were used: Automated exposure control, adjustm ent of the mA and/or kV according to patient size, and/or iterative reconstruction. Unless otherwise specified, incidental findings do not require dedicated imaging follow-up. [id number]. COMPARISON: Same day chest radiograph. FINDINGS: LOWER NECK: Visualized thyroid gland and soft tissues are normal. MEDIASTINUM AND LYMPH NODES: No mediastinal mass or fluid collection. Normal size mediastinal, hilar, and axillary lymph nodes. Mild distal esophageal thickening. THORACIC AORTA: No thoracic aortic aneurysm. PULMONARY ARTERIES: Enlarged main pulmonary arteries could indicate pulmonary artery hypertension. No pulmonary emboli identified to the level of the segmental pulmonary arteries. The subsegmental pulmonary arteries cannot be adequately assessed due to motion/suboptimal contrast opacification. HEART: Normal heart size. Mild coronary artery calcifications.No significant pericardial effusion. LUNGS AND AIRWAYS: Airways are clear. No evidence of airspace or interstitial process.Motion artifact limits evaluation for pulmonary nodule detection. PLEURA: No pleural effusions. No pneumothorax. OSSEOUS STRUCTURES AND CHEST WALL: Multilevel degenerative changes. No acute fracture. UPPER ABDOMEN: No acute abnormalities.Cholecystectomy Hepatic steatosis. IMPRESSION: Negative for pulmonary embolism to the level of the segmental pulmonary arteries. The subsegmental ve ssels cannot be adequate assessed. No alternate acute process identified.
[2024-12-07 19:58] VITALS: O2SAT 98
[2024-12-07 20:00] VITALS: BP 152/85
--- NOTE | 2024-12-11 12:22 | EKG ---
Test Date: 2024-12-07 Test Time: 15:42:13 Child Development Specialist: SANGEETA MEASUREMENT RESULTS: Intervals: Rate: 98 TX: 210 QRSD: 98 QT: 344 QTc: 439 [place]: P: 60 TX: 210 QRS: 39 T: 34 INTERPRETIVE STATEMENTS: Sinus rhythm with 1st degree AV block Otherwise normal ECG Compared to ECG 10/13/2018 09:42:15 First degree AV block now present Electronically Signed On 12-11-24 12:11:33 CDT by Luis Eduardo Whyte
== END 2024-12-07 19:14 | disposition home or self-care (01) ==
LOC: ER 14:49
DX: R00.0 Tachycardia, unspecified (principal); I10 Essential (primary) hypertension; E66.9 Obesity, unspecified; E78.00 Pure hypercholesterolemia, unspecified
CPT/HCPCS: 93005; 85025; 81001; 80048; 36415; 83735; 85610; 80076; 84443; 84484; 83690; 83880; 71275; 71045; 93970; 96372; 96374; 99285; Q9967; J3475; J1650; J7040